=== PATIENT | female | born 1955 | race Caucasian/White ===

== ENCOUNTER 2025-03-02 14:47 | Emergency (ER) | payer OTHER ==
[~2025-03-02] VITALS: Ht 167.6 cm; Wt 85.6 kg
[2025-03-02 15:03] LABS: BASOPHILS 1.4 % (0.1-1.2); EOSINOPHILS 4.1 % (0.7-5.8); LYMPHOCYTES 35.3 % (19.3-51.7); MCH 28.3 PG (25.6-32.2); MCHC 33.0 g/dL (32.2-35.5); MCV 85.8 fL (79.4-94.8); MONOCYTES 6.7 % (4.7-12.5); NEUTROPHILS 52.3 % (34.0-71.1); RBC 4.94 M/uL (3.93-5.22)
[2025-03-02] MEDS ORDERED: ZESTRIL40 MG PO (15:07)
[2025-03-02] MEDS ORDERED: HYDROCHLOROTHIA25 MG PO (15:07)
[2025-03-02] MEDS ORDERED: METFORMIN HCL500 MG PO (15:08)
[2025-03-02] MEDS ORDERED: EFFEXOR XR150 MG PO (15:08)
[2025-03-02 15:20] LABS: ALT (SGPT) 19.0 U/L (14-59); AST (SGOT) 13.0 U/L (15-37); GLOMERULAR FILTRATION RATE,EST 44.0 mL/min (>60); PROTEIN, TOTAL 6.9 g/dL (6.4-8.2); UREA NITROGEN 30.0 mg/dL (7-18)
[2025-03-02] MEDS ORDERED: SODIUM CHLORIDE 0.9% 1,000 ML IV PRN (15:45)
[2025-03-02 17:54] VITALS: BP 145/83
--- NOTE | 2025-03-02 19:53 | EKG ---
[facility] [address] [place], [place] [address] Signed Sinus rhythm with 1st degree AV block Otherwise normal ECG No previous ECGs available Confirmed by Rosaura Ybarra DO ([id number]) on 03/02/2025 7:52:50 PM Electronically Signed By: ROSAURA YBARRA DO 03/02/251952 PATIENT NAME: ESMER POWERS Electrocardiogram DATE OF : 55 PHYSICIAN: ROSAURA YBARRA DO REPORT #: [id number] REPORT IS CONFIDENTIAL AND NOT TO BE RELEASED WITHOUT AUTHORIZATION
== END 2025-03-02 17:52 | disposition home or self-care (01) ==
LOC: ED 14:47
PROVIDERS: Emergency Medicine
DX: T67.5XXA Heat exhaustion, unspecified, initial encounter (principal); E11.9 Type 2 diabetes mellitus without complications; I10 Essential (primary) hypertension; I25.2 Old myocardial infarction; Z79.84 Long term (current) use of oral hypoglycemic drugs; Z79.899 Other long term (current) drug therapy; X30.XXXA Exposure to excessive natural heat, initial encounter
CPT/HCPCS: 36415; 80053; 83735; 84484; 85025; 93005; 93010; 99284; J7030